=== PATIENT | male | born 1945 | race Caucasian/White ===

== ENCOUNTER 2020-06-15 04:06 | Emergency (ER) | payer MEDICARE, OTHER ==
[~2020-06-15] VITALS: Ht 180.3 cm; Wt 104.3 kg
[~2020-06-15 04:06] MED LIST: ASPI81CH PO; ATOR20 PO; CARV6.25 PO; ESCI20 PO; Flomax0.4 MG PO; LOSA50 PO; Norco 5-325 Ta1 EACH PO; Prilosec Otc20 MG; TAMS.4ER PO
[2020-06-15 04:56] LABS: BASOPHILS ABSOLUTE AUTO 0.04 K/mm3 (0.00-0.23); BASOPHILS PERCENT AUTO 0 % (0-2); EOSINOPHILS ABSOLUTE AUTO 0.18 K/mm3 (0.00-0.68); EOSINOPHILS PERCENT AUTO 2 % (0-6); Hemoglobin 14.2 g/dL (13.5-17.5); IMMATURE GRAN ABSOLUTE AUTO 0.02 K/mm3 (0.00-0.10); IMMATURE GRAN PERCENT AUTO 0 % (0-1); LYMPHOCYTES ABSOLUTE AUTO 1.46 K/mm3 (0.84-5.20); LYMPHOCYTES PERCENT AUTO 16 % (21-46); MONOCYTES ABSOLUTE AUTO 0.86 K/mm3 (0.16-1.47); MONOCYTES PERCENT AUTO 9 % (4-13); Mean Corpuscular HGB 31.9 pg (26.0-34.0); Mean Corpuscular HGB Conc 32.3 g/dL (31.5-36.5); Mean Corpuscular Volume 99 fL (80-100); Mean Platelet Volume 11.4 fL (9.1-12.4); NEUTROPHILS ABSOLUTE AUTO 6.58 K/mm3 (1.96-9.15); NEUTROPHILS PERCENT AUTO 72 % (41-73); Platelet Count 273 K/mm3 (150-400); RDW Coefficient Variation 12.4 % (11.7-14.2); RDW Standard Deviation 45.2 fL (35.1-46.3); Red Blood Cell Count 4.45 M/mm3 (4.30-5.90); White Blood Cell Count 9.14 K/mm3 (4.00-11.30)
[2020-06-15 05:34] LABS: Source, Urine Voided
[2020-06-15 05:37] LABS: Albumin, Blood 3.6 g/dL (3.4-5.0); Albumin/Globulin Ratio 0.9 (0.8-1.8); Bilirubin, Total 0.5 mg/dL (0.1-1.0); Calcium, Blood 8.7 mg/dL (8.5-10.1); Creatinine, Blood 1.93 mg/dL (0.60-1.20); Globulin, Blood 3.9 g/dL (2.2-4.0); Potassium, Blood 4.5 mmol/L (3.5-5.5); Total Protein, Blood 7.5 g/dL (6.4-8.2)
[2020-06-15 05:50] LABS: Appearance, Urine Clear (Clear); Bilirubin, Urine Neg (Neg); Blood, Urine 5+ (Neg); Color, Urine Yellow (P-Yellow); Glucose Qualitative, Urine Neg (Neg); Ketones, Urine Neg (Neg); Leukocyte Esterase, Urine Neg (Neg); Nitrite, Urine Neg (Neg); Protein, Urine 1+ (Neg); Urobilinogen, Urine NORM (Normal)
[2020-06-15] MEDS ORDERED: Norco 5-325 Ta1 EACH PO (05:58)
[2020-06-15] MEDS ORDERED: ONDA4 PO (05:58)
[2020-06-15] MEDS ORDERED: IBUP600 PO (05:58)
[2020-06-15 06:24] LABS: Squamous Epithelial Cells Rare /hpf (Few); White Blood Cells, Urine 0-2 /hpf (0-5)
[2020-06-15 06:25] LABS: Bacteria Few /hpf
== END 2020-06-15 06:41 | disposition home or self-care (01) ==
LOC: ER 04:06
PROVIDERS: Emergency Medicine
DX: N13.2 Hydronephrosis with renal and ureteral calculous obstruction (principal); Z79.82 Long term (current) use of aspirin; Z79.899 Other long term (current) drug therapy; I11.9 Hypertensive heart disease without heart failure; I43 Cardiomyopathy in diseases classified elsewhere
CPT/HCPCS: 36415; 74176; 80053; 81001; 83690; 85025; 93005; 93010; 96374; 96375; 96376; 99284-25; J2270; J2405

== ENCOUNTER 2020-10-19 05:33 | Day surgery (SDC) | payer MEDICARE, OTHER ==
[~2020-10-19] VITALS: Ht 180.3 cm; Wt 118.0 kg
[~2020-10-19 05:33] MED LIST changes: +ALDACTONE25 MG PO; +CLOP75 PO; +IBUP600 PO; +ONDA4 PO; +TORSE20 PO
--- NOTE | 2020-10-19 08:21 | NUR ---
PT TO RECOVERY ROOM. R RADIAL SITE STABLE WITH 10 CC IN TR BAND. PT DENIES PAIN AT THIS TIME.
--- NOTE | 2020-10-19 11:28 | NUR ---
ALL AIR RELEASED FROM TR BAND AROUND 1030 AM BY GARRY CHILDRESS. R RADIAL SITE STABLE, NO BNLEEDING NOTED. PT DRESSED WITH MINIMAL ASSISTANCE. TR BAND REMOVED AND SITE CLEANSED. CLOTH DOT PLACED OVER SITE. NO ACTIVE BLEEEDING NOTED, PT DENIES PAIN AND SITE REMAINS STABLE. DISCHARGE INSTRUCTIONS REVIEWED WITH PT, PT VERBALIZES UNDERSTANDING OF INSTRUCTIONS. SALINE LOCK REMOVED WITH CATHETER INTACT. SLING PLACED TO RIGHT ARM FOR REMINDERS NOT TO USE ARM. PT DISCHARGED PER W/C TO PRIVATE VEHICLE.
== END 2020-10-19 11:30 | disposition home or self-care (01) ==
LOC: MHTC 05:33
PROC: B2111ZZ Fluoroscopy of Multiple Coronary Arteries using Low Osmolar Contrast (ICD-10-PCS; principal; 2020-10-19)
PROC: 4A023N8 Measurement of Cardiac Sampling and Pressure, Bilateral, Percutaneous Approach (ICD-10-PCS; principal; 2020-10-19)
DX: I47.2 Ventricular tachycardia (principal); I25.5 Ischemic cardiomyopathy; I11.0 Hypertensive heart disease with heart failure; I50.9 Heart failure, unspecified; E78.5 Hyperlipidemia, unspecified; I45.2 Bifascicular block; K21.9 Gastro-esophageal reflux disease without esophagitis; Q21.1 Atrial septal defect; Q23.3 Congenital mitral insufficiency; Z79.82 Long term (current) use of aspirin; Z79.899 Other long term (current) drug therapy; Z20.828 Contact with and (suspected) exposure to other viral communicable diseases
CPT/HCPCS: 93460; 99152; C1769; C1894; J1644; J2250; J3010; J7030; J7050; Q9967

== ENCOUNTER 2020-11-13 05:46 | Day surgery (SDC) | payer MEDICARE, OTHER ==
[~2020-11-13] VITALS: Ht 180.3 cm; Wt 116.8 kg
[~2020-11-13 05:46] MED LIST changes: +COREG12.5 MG; +OMEP20ER PO
--- NOTE | 2020-11-13 12:48 | NUR ---
RECHECKED PACER SITE. CDI. NO SWELLING, HEMATOMA NOTED, COOL TO TOUCH. ICE PACK IN PLACE. PT PLEASANT COOP A/O TALKATIVE.
--- NOTE | 2020-11-13 17:25 | NUR ---
PT PLEASANT SINCE ADMIT. REPORTS ONLY LIGHT PAIN. NO SWELLING, NO BLEEDING NOTED AT PACER SITE. IN TO VISIT TODAY FOR FEW HOURS. PT STATES WAS WORKING AT [employer] FOR MANY YEARS. TALKED ABOUT THIS SOME. NO NEW CONCERNS AT THIS TIME. BED IN LOW POSITION, CALL LITE IN [facility], CALLS APPROP
--- NOTE | 2020-11-13 19:38 | NUR ---
IV IS IN PATIENT'S LEFT FOREARM, NOT HIS LEFT AC
--- NOTE | 2020-11-13 19:50 | NUR ---
PATIENT A/OX3. REPORTED PAIN IN L UPPER CHEST WALL R/T ICD PLACEMENT RATED 3/10, MEDICATED WITH TYLENOL. PACED WITH PVCS IN THE 70'S PER TELETECH. SLING IN PLACE TO L ARM, PATIENT VERBALIZED UNDERSTANDING OF POST ICD PLACEMENT PRECAUTIONS. DRESSING TO L UPPER CHEST WALL WITH SMALL AMT YELLOW DRAINAGE, UNCHANGED FROM ASSESSMENT WITH DAYSHIFT RN. NO SWELLING OR BRUISING NOTED TO SITE. UP TO BATHROOM WITH SBA. DISCUSSED POC FOR SHIFT, CARE ROUNDING. CALL LIGHT IN REACH. BED ALARM ON FOR SAFETY.
--- NOTE | 2020-11-14 06:20 | NUR ---
SHIFT SUMMARY: PATIENT A/OX3. TYLENOL GIVEN FOR PAIN IN L UPPER CHEST WALL AND L SHOULDER WITH GOOD EFFECT, PATIENT ABLE TO SLEEP. 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 STATES THAT HE HAS BEEN ABLE TO SLEEP MOST OF THIS SHIFT. SLING REMAINS TO L ARM. DRESSING TO LUCW REMAINS INTACT, NO ADDITIONAL DRAINAGE NOTED, SLIGHT SWELLING NOTED BELOW DRESSING. DISCHAGE EDUCATION AND INFORMATION STARTED. WILL CONTINUE TO MONITOR AND REPORT TO ONCOMING RN.
--- NOTE | 2020-11-14 07:29 | NUR ---
ASSUMED CARE: PT SITTING UPRIGHT IN BED, TALKING TO STAFF. SLING IN PLACE, PACER SITE WITH SCANT IODINE DRAINAGE. TELE SHOWS NSR WITH 1ST DEGREE AND BBB. PACED AT TIMES. PLANS FOR PACER INTERROGATION THIS AM. DENIES NEEDS OR CONCERNS AT THIS TIME.
--- NOTE | 2020-11-14 12:01 | NUR ---
DISCHARGE: PT GIVEN INSTRUCTIONS ON ACTIVITY RESTRICTIONS TO LEFT ARM AND FOLLOW UP APPOINTMENTS. PT VERBALIZED UNDERSTANDING AND REPEATED BACK INSTRUCTIONS. DR CUMMINS CAME TO SEE PT AND CLEARED HIM FOR DISCHARGE, DID DRESSING CHANGE. IV DC'D AND PT WEARING SLING. PT'S HAS BEEN CONTACTED TO EMPLOYEE BENEFITS ATTORNEY. PT ESCORTED OUT VIA WHEEL CHAIR BY TIARRA.
== END 2020-11-14 12:04 | disposition home or self-care (01) ==
LOC: MHTC 05:46 → PCU 05:46 → MHTC 06:00 → PCU 09:00 → MHTC 11-14 12:04
PROC: 0JH608Z Insertion of Defibrillator Generator into Chest Subcutaneous Tissue and Fascia, Open Approach (ICD-10-PCS; principal; 2020-11-13)
PROC: 02H63KZ Insertion of Defibrillator Lead into Right Atrium, Percutaneous Approach (ICD-10-PCS; principal; 2020-11-13)
PROC: 02HK3KZ Insertion of Defibrillator Lead into Right Ventricle, Percutaneous Approach (ICD-10-PCS; principal; 2020-11-13)
DX: I47.2 Ventricular tachycardia (principal); I42.9 Cardiomyopathy, unspecified; I45.10 Unspecified right bundle-branch block; I44.0 Atrioventricular block, first degree; I25.10 Atherosclerotic heart disease of native coronary artery without angina pectoris; I77.819 Aortic ectasia, unspecified site; I10 Essential (primary) hypertension; Q21.1 Atrial septal defect; E66.9 Obesity, unspecified; E78.5 Hyperlipidemia, unspecified; Z79.82 Long term (current) use of aspirin; Z79.899 Other long term (current) drug therapy; Z68.36 Body mass index [BMI] 36.0-36.9, adult; Z20.822 Contact with and (suspected) exposure to COVID-19
CPT/HCPCS: 33249; 71045; 71046; 76937; 99152; 99153; A9270; A9270-GY; C1894; C1895; C1898; J0690; J1644; J2250; J3010; J7030; J7040

== ENCOUNTER 2020-12-06 11:15 | Inpatient (IN) | payer MEDICARE, OTHER ==
[~2020-12-06] VITALS: Ht 180.3 cm; Wt 113.1 kg
[~2020-12-06 11:15] MED LIST changes: -ASPI81CH PO; -CARV6.25 PO; -ESCI20 PO; -LOSA50 PO
[2020-12-06 11:40] LABS: BASOPHILS ABSOLUTE AUTO 0.06 K/mm3 (0.00-0.23); BASOPHILS PERCENT AUTO 0 % (0-2); EOSINOPHILS ABSOLUTE AUTO 0.09 K/mm3 (0.00-0.68); EOSINOPHILS PERCENT AUTO 1 % (0-6); Hematocrit 45.3 % (37.0-53.0); Hemoglobin 15.1 g/dL (13.5-17.5); IMMATURE GRAN ABSOLUTE AUTO 0.08 K/mm3 (0.00-0.10); IMMATURE GRAN PERCENT AUTO 1 % (0-1); LYMPHOCYTES ABSOLUTE AUTO 2.31 K/mm3 (0.84-5.20); LYMPHOCYTES PERCENT AUTO 13 % (21-46); MONOCYTES ABSOLUTE AUTO 1.32 K/mm3 (0.16-1.47); MONOCYTES PERCENT AUTO 7 % (4-13); Mean Corpuscular HGB 31.3 pg (26.0-34.0); Mean Corpuscular HGB Conc 33.3 g/dL (31.5-36.5); Mean Corpuscular Volume 94 fL (80-100); NEUTROPHILS ABSOLUTE AUTO 13.86 K/mm3 (1.96-9.15); NEUTROPHILS PERCENT AUTO 78 % (41-73); Platelet Count 360 K/mm3 (150-400); RDW Coefficient Variation 12.2 % (11.7-14.2); RDW Standard Deviation 42.8 fL (35.1-46.3); Red Blood Cell Count 4.82 M/mm3 (4.30-5.90); White Blood Cell Count 17.72 K/mm3 (4.00-11.30)
[2020-12-06 12:04] LABS: Alanine Aminotransfer (ALT/SGP 42 U/L (12-78); Albumin, Blood 3.4 g/dL (3.4-5.0); Albumin/Globulin Ratio 0.7 (0.8-1.8); Alk Phos 74 U/L (50-136); Anion Gap 7 mmol/L (6-16); Aspartate Aminotrans (AST/SGOT 47 U/L (12-37); Bilirubin, Total 1.3 mg/dL (0.1-1.0); Blood Urea Nitrogen 23 mg/dL (8-24); Bun/Creatinine Ratio 19.5 (12.0-20.0); CO2, Blood 22 mmol/L (21-32); Chloride, Blood 107 mmol/L (98-108); Creatinine, Blood 1.18 mg/dL (0.60-1.20); Globulin, Blood 4.8 g/dL (2.2-4.0); Glomerular Filtration Rate >60 (60-); Glucose, Blood 128 mg/dL (70-99); Potassium, Blood 4.7 mmol/L (3.5-5.5); Sodium, Blood 136 mmol/L (136-145); Total Protein, Blood 8.2 g/dL (6.4-8.2)
[2020-12-06 12:14] LABS: Source, Urine Clean Catch
[2020-12-06 12:17] LABS: Bilirubin, Urine Neg (Neg); Blood, Urine Neg (Neg); Color, Urine Yellow (P-Yellow); Glucose Qualitative, Urine Neg (Neg); Ketones, Urine 1+ (Neg); Leukocyte Esterase, Urine Neg (Neg); Nitrite, Urine Neg (Neg); Protein, Urine 1+ (Neg); Urobilinogen, Urine NORM (Normal)
[2020-12-06 12:30] LABS: Appearance, Urine Hazy (Clear)
[2020-12-06 12:31] LABS: Bacteria Rare /hpf; Red Blood Cells, Urine 0-2 /hpf (0-2); Squamous Epithelial Cells Rare /hpf (Few); Uric Acid Crystals Many /hpf; White Blood Cells, Urine 0-2 /hpf (0-5)
[2020-12-06] MEDS ORDERED: NEURONTIN300 MG PO (14:18)
[2020-12-06] MEDS ORDERED: LOSARTAN POTAS100 M1 PO (14:19)
[2020-12-06] MEDS ORDERED: METO25ER PO (14:19)
[2020-12-06] MEDS ORDERED: ESCI20 PO (14:20)
[2020-12-06] MEDS ORDERED: CARVEDILOL12.5 MG PO (14:20)
[2020-12-06] MEDS ORDERED: PLAVIX75 MG PO (14:21)
[2020-12-06] MEDS ORDERED: Aspir 8181 MG PO (14:23)
[2020-12-06 17:56] LABS: Influenza A, PCR Negative (NEGATIVE); Influenza B, PCR Negative (NEGATIVE); Resp Syncytial Virus, PCR Negative (NEGATIVE); SARS-Cov-2 (COVID-19) PCR, MMC Negative (NEGATIVE)
--- NOTE | 2020-12-06 18:33 | NUR ---
SHIFT SUMMARY/ADMISSION PT A NEW ADMIT TO ROOM 333 FROM ED THIS EVENING. PT ALERT AND ORIENTED X4. DENIES PAIN OR NAUSEA AT THIS TIME. VITALS WNL. FLUIDS STARTED PER DR. CISNEROS. TELE ON AND NSR IN 70'S. PT'S INCISION TO LEFT CHESTWALL INTACT AND HEALING, SCABBED OVER. NO REDNESS NOTED. WAITING FOR DR. BARBA TO SEE PT AND POSSIBLE SURGERY TONIGHT. CALL LIGHT IN REACH. WILL CONTINUE TO MONITOR.
--- NOTE | 2020-12-07 04:29 | NUR ---
SHIFT SUMMARY ASSUMED CARE OF PT AT 1900. PT IS A/OX4. HEART SOUNDS IRREGULAR, TELE SHOWS AFIB @ 70. LUNG SOUNDS DIMINISHED AT BASES, PT WAS ON 2L BUT TITRATED TO 1L, SATURATIONS ABOVE 95%. PT WAS CONTIENT TO BATHROOM. PT HAS BEEN NPO SINCE MIDNIGHT. PT REPORTS PAIN ON HIS R LOWER QUADRANT ABD, MEDICATED TWICE FOR PAIN. PT IS VERY STIFF AND SHAKY PT STATES THAT HE HAS SEEN A DOCTOR OUT PATIENTLY FOR THIS. CALL LIGHT IN REACH, BED IN LOWEST POSITION.
[2020-12-07 05:43] LABS: BASOPHILS ABSOLUTE AUTO 0.04 K/mm3 (0.00-0.23); BASOPHILS PERCENT AUTO 0 % (0-2); EOSINOPHILS ABSOLUTE AUTO 0.14 K/mm3 (0.00-0.68); EOSINOPHILS PERCENT AUTO 1 % (0-6); Hematocrit 43.7 % (37.0-53.0); Hemoglobin 14.4 g/dL (13.5-17.5); IMMATURE GRAN PERCENT AUTO 1 % (0-1); LYMPHOCYTES ABSOLUTE AUTO 2.07 K/mm3 (0.84-5.20); LYMPHOCYTES PERCENT AUTO 11 % (21-46); MONOCYTES ABSOLUTE AUTO 1.42 K/mm3 (0.16-1.47); MONOCYTES PERCENT AUTO 8 % (4-13); Mean Corpuscular HGB 32.1 pg (26.0-34.0); Mean Corpuscular Volume 98 fL (80-100); Mean Platelet Volume 10.9 fL (9.1-12.4); NEUTROPHILS ABSOLUTE AUTO 14.79 K/mm3 (1.96-9.15); NEUTROPHILS PERCENT AUTO 80 % (41-73); Platelet Count 311 K/mm3 (150-400); RDW Coefficient Variation 12.5 % (11.7-14.2); Red Blood Cell Count 4.48 M/mm3 (4.30-5.90); White Blood Cell Count 18.56 K/mm3 (4.00-11.30)
[2020-12-07 06:04] LABS: Bun/Creatinine Ratio 18.6 (12.0-20.0); Calcium, Blood 8.7 mg/dL (8.5-10.1); Creatinine, Blood 1.56 mg/dL (0.60-1.20); Potassium, Blood 4.1 mmol/L (3.5-5.5)
--- NOTE | 2020-12-07 07:33 | NUR ---
ASSUMED CARE OF PT- BEDSIDE REPORT COMPLETED WITH NIGHT RN. PER REPORT PT SCHEDULED TO GO TO SURGERY AROUND 1200. DR FORRESTER AT THE BEDSIDE, PT VITALS COMPLETED SHE WILL PLACE AN ORDER FOR A LOW DOSE OF PT CARDIAC MEDICATION THE PT BP IS A LITTLE HIGHER THIS MORNING. WILL ADMINISTER ONCE THE ORDER IS IN. PT ALERT AND ORIENTED 1PA TO THE BATHROOM PER REPORT. DR FORRESTER WOULD LIKE A PACER INTEROGATION TO BE COMPLETED AFTER SURGERY HAS BEEN COMPLETED AND PT IS BACK TO HIS ROOM. RN TO CALL [facility] POST OP TO ARRANGE.
--- NOTE | 2020-12-07 16:00 | NUR ---
CALLED DR FORRESTER- PER TELE PT HAS INCREASED PVC'S FROM 10 PER MINUTE TO 20 PER MINUTE. VITALS REMAIN STABLE, PT DENIES CHEST PAIN OR INCREASED SOB AT THIS TIME RECIEVED ORDER FOR 25MG PO METOPROLOL SCUCCINATE OT DOSE. PT TO GO TO SURGERY AFTER 5PM AT THIS TIME.
--- NOTE | 2020-12-07 18:05 | NUR ---
PT PREOPED IN HIS ROOM. History, Chart, Medications and Allergies reviewed before start of procedure. Lungs clear T/O to Auscultation. Patient confirms NPO status and agrees with scheduled surgery. Pre-Op teaching done. Pt verbalizes understanding.
--- NOTE | 2020-12-07 19:32 | NUR ---
12/07/201931 Daryn Schilling PT RECIEVED SCHEDULED ANTIBIOTICS PRIOR TO ARRIVAL TO OR.
--- NOTE | 2020-12-07 19:42 | NUR ---
SHIFT SUMMARY- PT VITALS REMAINED STABLE T/O THE DAY, HE DENIES ANT CP OR PRESSURE, DENIED SOB. PT TAKEN BY SABRINA DOWN TO DAY SURGERY AT AROUND 1830. RECIEVED A CALL FROM THE HEART CENTER ABOUT THE PLAN FOR DEVICE INTEROGATION POST OP, BUT THE PT HAD NOT LEFT FOR THE PROCEDURE YET. WAS INFORMED IT WILL HAVE TO BE DONE IN THE MORNING. CALLED DR FORRESTER AND SHE IS AWARE OF THE DELAY. PAST ON THE NEED FOR DEVICE INTERROGATION TO NIGHT CORE MAKER WELL NIGHT BEDSIDE RN. PT WAS NOT PRESENT IN THE ROOM AT THE TIME OF SHIFT CHANGE. SPOUSE LEFT WHEN THE PT WAS TAKEN FOR THE PROCEDURE.
--- NOTE | 2020-12-08 04:22 | NUR ---
DOLLY PUSHER SUMMARY A/OX4, PT POST OP FROM APPENDECTOMY AT BEGINNING OF SHIFT. DENIES PAIN OR SOB. STATES HE IS VERY TIRED. CURRENTLY ON 3L VIA NC, ENCOURAGED USE OF INCENTIVE SPIROMETER. CONT. BIOX IN PLACE WITH SATS GREATER THAN 92. VSS. NO ACUTE CHANGES AT THIS TIME. BED IN LOWEST POSITION WITH CALL LIGHT IN REACH. WILL CONTINUE TO MONITOR AND REPORT TO ONCOMING RN.
[2020-12-08 05:13] LABS: BASOPHILS ABSOLUTE AUTO 0.03 K/mm3 (0.00-0.23); BASOPHILS PERCENT AUTO 0 % (0-2); EOSINOPHILS PERCENT AUTO 0 % (0-6); Hematocrit 43.3 % (37.0-53.0); Hemoglobin 13.7 g/dL (13.5-17.5); IMMATURE GRAN ABSOLUTE AUTO 0.15 K/mm3 (0.00-0.10); IMMATURE GRAN PERCENT AUTO 1 % (0-1); LYMPHOCYTES PERCENT AUTO 6 % (21-46); MONOCYTES PERCENT AUTO 5 % (4-13); Mean Corpuscular HGB 31.4 pg (26.0-34.0); Mean Corpuscular HGB Conc 31.6 g/dL (31.5-36.5); Mean Corpuscular Volume 99 fL (80-100); Mean Platelet Volume 10.8 fL (9.1-12.4); NEUTROPHILS ABSOLUTE AUTO 17.05 K/mm3 (1.96-9.15); NEUTROPHILS PERCENT AUTO 88 % (41-73); Platelet Count 327 K/mm3 (150-400); RDW Coefficient Variation 12.4 % (11.7-14.2); RDW Standard Deviation 46.2 fL (35.1-46.3); Red Blood Cell Count 4.36 M/mm3 (4.30-5.90); White Blood Cell Count 19.33 K/mm3 (4.00-11.30)
[2020-12-08 05:36] LABS: Albumin, Blood 2.8 g/dL (3.4-5.0); Albumin/Globulin Ratio 0.6 (0.8-1.8); Bilirubin, Total 1.2 mg/dL (0.1-1.0); Bun/Creatinine Ratio 20.9 (12.0-20.0); Calcium, Blood 8.2 mg/dL (8.5-10.1); Creatinine, Blood 1.48 mg/dL (0.60-1.20); Globulin, Blood 4.5 g/dL (2.2-4.0); Potassium, Blood 4.2 mmol/L (3.5-5.5); Total Protein, Blood 7.3 g/dL (6.4-8.2)
--- NOTE | 2020-12-08 08:35 | NUR ---
DEVICE INTERROGATION ORDERED BY DR. COUGHLIN POST SURGERY. NORMAL FUNCTIONING DUAL CHAMBER ICD. P WAVE 1.8mV. R WAVE 7.8mV.ATRIAL CAPTURE THRESHOLD 0.5V@.4ms. VENTRICULAR CAPTURE THRESHOLD 2.0V@0.9ms. VT-NS EPISODES: 6. Ap25% Vp2%. STABLE LEAD IMPEDANCES AT 361 OHMS IN THE ATRIUM AND 475 OHMS IN THE VENTRICLE. TO SEE IN CLINIC 01/11/21.
--- NOTE | 2020-12-08 16:36 | NUR ---
PATIENT IS ALERT AND ORIENTED. ABLE TO MAKE NEEDS KNOWN. PAIN CONTROLLED WELL UP UNTIL THIS AFTERNOON WHEN PATIENT REQUESTED SOME PAIN MEDICATION; PENDING EFFECTIVENESS. CONTINUES ON IV ABX WITHOUT S/SX OF ADVERSE REACTIONS NOTED OR REPORTED. VITALS ARE STABLE. IS AT BEDSIDE. CALL LIGHT IS IN REACH.
--- NOTE | 2020-12-09 04:21 | NUR ---
SHIFT SUMMARY NO ACUTE CHANGES THIS SHIFT, MEDICATED 1X FOR PAIN, PT THEN SLEPT T/O THE NIGHT, MINIMAL ST BY ASSIST TO BR, ABLE TO MAKE NEEDS KNOWN, SLEEPING AT THIS TIME, CALL LIGHT IN REACH, WILL CONT TO MONITOR UNTIL REPORT GIVEN TO DAY RN.
[2020-12-09 05:43] LABS: BASOPHILS ABSOLUTE AUTO 0.04 K/mm3 (0.00-0.23); BASOPHILS PERCENT AUTO 0 % (0-2); EOSINOPHILS ABSOLUTE AUTO 0.35 K/mm3 (0.00-0.68); EOSINOPHILS PERCENT AUTO 2 % (0-6); Hematocrit 41.9 % (37.0-53.0); Hemoglobin 13.4 g/dL (13.5-17.5); IMMATURE GRAN ABSOLUTE AUTO 0.15 K/mm3 (0.00-0.10); IMMATURE GRAN PERCENT AUTO 1 % (0-1); LYMPHOCYTES ABSOLUTE AUTO 1.71 K/mm3 (0.84-5.20); LYMPHOCYTES PERCENT AUTO 10 % (21-46); MONOCYTES ABSOLUTE AUTO 1.53 K/mm3 (0.16-1.47); MONOCYTES PERCENT AUTO 9 % (4-13); Mean Corpuscular HGB 31.4 pg (26.0-34.0); Mean Corpuscular Volume 98 fL (80-100); Mean Platelet Volume 10.9 fL (9.1-12.4); NEUTROPHILS ABSOLUTE AUTO 13.73 K/mm3 (1.96-9.15); NEUTROPHILS PERCENT AUTO 78 % (41-73); Platelet Count 358 K/mm3 (150-400); RDW Coefficient Variation 12.5 % (11.7-14.2); RDW Standard Deviation 45.5 fL (35.1-46.3); Red Blood Cell Count 4.27 M/mm3 (4.30-5.90); White Blood Cell Count 17.51 K/mm3 (4.00-11.30)
[2020-12-09 06:19] LABS: Alanine Aminotransfer (ALT/SGP 28 U/L (12-78); Albumin, Blood 2.7 g/dL (3.4-5.0); Albumin/Globulin Ratio 0.6 (0.8-1.8); Alk Phos 66 U/L (50-136); Anion Gap 5 mmol/L (6-16); Aspartate Aminotrans (AST/SGOT 27 U/L (12-37); Bilirubin, Total 0.6 mg/dL (0.1-1.0); Blood Urea Nitrogen 33 mg/dL (8-24); Bun/Creatinine Ratio 26.6 (12.0-20.0); CO2, Blood 27 mmol/L (21-32); Calcium, Blood 8.4 mg/dL (8.5-10.1); Chloride, Blood 106 mmol/L (98-108); Creatinine, Blood 1.24 mg/dL (0.60-1.20); Globulin, Blood 4.4 g/dL (2.2-4.0); Glomerular Filtration Rate >60 (60-); Glucose, Blood 120 mg/dL (70-99); Potassium, Blood 4.1 mmol/L (3.5-5.5); Sodium, Blood 138 mmol/L (136-145); Total Protein, Blood 7.1 g/dL (6.4-8.2)
--- NOTE | 2020-12-09 16:02 | NUR ---
PATIENT ALERT AND ORIENTED. PLEASANT AND COOPERATIVE WITH STAFF. VITALS STABLE; OCCASIONALLY HIS O2 SATS DIP JUST BELOW 90% BUT QUICKLY RESOLVE ON IT'S OWN. PATIENT CONTINUES ON IV ABX WITHOUT S/SX OF ADVERSE REACTIONS NOTED OR REPORTED AT THIS TIME. PAIN TO PATIENT'S LOWER ABDOMEN CONTINUES, BEEN ON TOP OF PAIN MANAGEMENT WITH SOME EFFECTIVENESS. PATIENT CONTINUES TO TRY AND GET SOME REST WHEN HE CAN. PATIENT IN ROOM RESTING AT THIS TIME. CALL LIGHT WITHIN REACH. VISITING AT BEDSIDE.
--- NOTE | 2020-12-10 04:46 | NUR ---
SHIFT SUMMARY NO ACUTE CHANGES THIS SHIFT, MEDICATED PER MAR FOR PAIN 2X THIS SHIFT, REPORTS PAIN LEVELS 05/15 BUT APPEARS TO BE MOVING BETTER & REPORTS PAIN IS MORE LOWER ABD THAN R QUAD NOW, SLEPT T/O THE NIGHT & AT THIS TIME, CALL LIGHT IN REACH, WILL CONT TO MONITOR UNTIL REPORT GIVEN TO DAY RN.
--- NOTE | 2020-12-10 17:40 | NUR ---
HE RECEIVED A FLEETS ENEMA THIS AFTERNOON, A ONE TIME ORDER FROM . HE PASSED A LOT OF DARK BROWN WATER. EARLIER TODAY HE HAD A COUPLE OF WATERY BROWN STOOLS. HE DENIES ANY DIFFICULTY VOIDING. HE HAD DRY HEEVES THIS AFTER BREAKFAST AND VOMITED ABOUT 60 MLS OF WATERY RED FLUID MID-AFTERNOON. HE HAD RECEIVED HYDOCODONE ABOUT 90 MIN BEFORE EACH OF THESE INCIDENTS. HIS ABD IS SEVERELY DISTENDED AND SEMI-SOFT. BS ARE HYPOACTIVE. 3 LAP SITE ARE WNL. HE ATE BREAKFAST WELL BUT DIDN'T EAT MUCH LUNCH. TEDS ON. OXIMETRY ON. READINGS HAVE BEEN WNL ALL DAY. IV ANTIBIOTICS CONTINUE. HE IS AFEBRILE AND REMAINS ON RA. HE HAS RECEIVED ZOFRAN X1, TUMS X1, HYDROCODONE X1 AND FLEETS ENEMA X1 THIS SHIFT.
--- NOTE | 2020-12-10 18:47 | NUR ---
FOUND HIS SL OUT OF THE SKIN. HE HAS BEEN RESTARTED AND FLAGYL RESTARTED.
--- NOTE | 2020-12-11 04:21 | NUR ---
SHIFT SUMMARY NO ACUTE CHANGES THIS SHIFT, MEDICATED 1X FOR PAIN, NO OTHER C/O ANY KIND, SLEPT T/O THE NIGHT, SLEEPING AT THIS TIME, CALL LIGHT IN REACH, WILL CONT TO MONITOR UNTIL REPORT GIVEN TO DAY RN.
[2020-12-11 05:23] LABS: BASOPHILS ABSOLUTE AUTO 0.06 K/mm3 (0.00-0.23); BASOPHILS PERCENT AUTO 1 % (0-2); EOSINOPHILS PERCENT AUTO 2 % (0-6); Hematocrit 41.8 % (37.0-53.0); Hemoglobin 13.5 g/dL (13.5-17.5); IMMATURE GRAN ABSOLUTE AUTO 0.16 K/mm3 (0.00-0.10); IMMATURE GRAN PERCENT AUTO 1 % (0-1); LYMPHOCYTES ABSOLUTE AUTO 1.57 K/mm3 (0.84-5.20); LYMPHOCYTES PERCENT AUTO 12 % (21-46); MONOCYTES ABSOLUTE AUTO 0.95 K/mm3 (0.16-1.47); MONOCYTES PERCENT AUTO 7 % (4-13); Mean Corpuscular HGB 31.3 pg (26.0-34.0); Mean Corpuscular HGB Conc 32.3 g/dL (31.5-36.5); Mean Corpuscular Volume 97 fL (80-100); Mean Platelet Volume 10.6 fL (9.1-12.4); NEUTROPHILS ABSOLUTE AUTO 10.05 K/mm3 (1.96-9.15); NEUTROPHILS PERCENT AUTO 77 % (41-73); Platelet Count 374 K/mm3 (150-400); RDW Coefficient Variation 12.7 % (11.7-14.2); RDW Standard Deviation 45.4 fL (35.1-46.3); Red Blood Cell Count 4.32 M/mm3 (4.30-5.90); White Blood Cell Count 12.99 K/mm3 (4.00-11.30)
[2020-12-11 05:47] LABS: Anion Gap 8 mmol/L (6-16); Blood Urea Nitrogen 18 mg/dL (8-24); Bun/Creatinine Ratio 21.4 (12.0-20.0); CO2, Blood 25 mmol/L (21-32); Calcium, Blood 8.6 mg/dL (8.5-10.1); Chloride, Blood 107 mmol/L (98-108); Creatinine, Blood 0.84 mg/dL (0.60-1.20); Glomerular Filtration Rate >60 (60-); Glucose, Blood 130 mg/dL (70-99); Potassium, Blood 4.1 mmol/L (3.5-5.5); Sodium, Blood 140 mmol/L (136-145)
--- NOTE | 2020-12-11 15:40 | NUR ---
HE HAS NAPPED OFF AND ON TODAY. HIS HAS VISITED THIS AFTERNOON. PT EVALUATED HIM. HE HAS WALKED IN THE [place] WITH 1 ASSIST AND A GAITBELT X2 SO FAR TODAY. BOTH AND HAVE ROUNDED ON HIM. WAS TALKING POSSIBLE DC TOMORROW BUT WAS TALKING DC MONDAY OR SO. SHE MAY ORDER A CT MONDAY TO SEE IF ANY NEW OR RESIDUAL ABSCESS HAS FORMED SINCE SURGERY. HE IS NOT EATING WELL, 50% BREAKFAST AND NO LUNCH. THIS MIMICS YESTERDAY TOO. NO FEVER. LAPAROSCOPIC SITES ON ABD WNL. VSS. HE HAS RECEIVED HYDROCODONE ONCE SO FAR THIS SHIFT. HE HAS HAD A SMALL NONPRODUCTIVE COUGH. HIS OXIMETRY WAS DC'D. HE HAS BEEN ON RA 90-94%. THE MACHINE IS NEEDED ELSEWHERE. KNEE HIGH TEDS ARE ON BILAT. GETS I.S. UP TO 1200.
--- NOTE | 2020-12-11 18:25 | NUR ---
HE RECEIVED [employer] 2 TABS X2 TODAY. HIS VISITED FOR A FEW HRS. HE WALKED IN THE [place] TWICE. HE HAD 2 LOOSE STOOLS. HE SAYS HE DOESN'T PASS MUCH GAS. ABD IS DISTENDED. SEE PREVIOUS NURSES NOTE FOR MORE DETAILS.
--- NOTE | 2020-12-12 05:14 | NUR ---
PT SLEPT WELL TONIGHT. A/O X4. MEDICATED FOR PAIN DUE TO ABD. BLOATING OVERNIGHT. PT CONTINUES TO HAVE VERY LOOSE STOOLS, HOWEVER THIS TIME IT WAS "BLACK AND GRAINY" PER CARDIAC/VASCULAR SONOGRAPHER. BM WAS FLUSHED BEFORE RN COULD TAKE A LOOK. PT SAID BM DID APPEAR DARKER. DENIES NAUSEA, SOB. CALL LIGHT WITHIN REACH, BED ALARM IN PLACE. WCC.
--- NOTE | 2020-12-12 09:50 | NUR ---
ASKED FOR ANOTHER ANTINAUSEA MED. GIVEN AROUND 0830 AND STILL WITH NAUSEA. NO VOMITING.COMPAZINE 10 MG IV Q 6 HR PRN
--- NOTE | 2020-12-12 16:01 | NUR ---
ALERT. ORIENTED. ABLE TO MAKE NEEDS KNOWN. REVIEW/UPDATE IN PATIENTS ROOM. AWARE POSSIBLE D'C ON MONDAY. AMBULATORY X ONE IN HALLWAY AND TOLERATED WELL. MEDICATED TWICE FOR NAUSEA. PATIENT STILL FEELS BLOATED TO ABD AND PASSING A LITTLE GAS. HAS BEEN VISITING FOR FEW HOURS. [facility]
--- NOTE | 2020-12-12 21:57 | NUR ---
PT AMBULATED WITH 1 ASSIST, GAITBELT AND FWW DOWN THE VELAZ[place] ABOUT 250 FEET. PT FELT NAUSEOUS AFTER WALK. IV ZOFRAN GIVEN. NOW PT IS RESTING WITH EYES CLOSED IN BED. BED ALARM IN PLACE. CALL LIGHT WITHIN REACH. [facility].
--- NOTE | 2020-12-13 05:59 | NUR ---
ASSESSMENT SERVICES MANAGER SUMMARY PT A/O X4. AMBULATED NOW THE HALLWAY OVERNIGHT. PT MEDICATED OVERNIGHT FOR NAUSEA. STATES HE HAS INTERMITTENT NAUSEA. PT STATES VERY MILD TOLERABLE NAUSEA CURRENTLY. PT ALSO SAYS HE FEELS A LITTLE LESS BLOATED. HE IS PASSING SOME GAS. CONTINUES TO HAVE FREQUENT WATERY DARK GREEN/BROWN BOWEL MOVEMENTS. VSS. CALL LIGHT WITHIN REACH, BED ALARM ON, BED IN LOWEST POSITION.
[2020-12-13 11:08] LABS: BASOPHILS ABSOLUTE AUTO 0.07 K/mm3 (0.00-0.23); BASOPHILS PERCENT AUTO 1 % (0-2); EOSINOPHILS ABSOLUTE AUTO 0.11 K/mm3 (0.00-0.68); EOSINOPHILS PERCENT AUTO 1 % (0-6); Hematocrit 41.8 % (37.0-53.0); Hemoglobin 13.5 g/dL (13.5-17.5); IMMATURE GRAN PERCENT AUTO 2 % (0-1); LYMPHOCYTES ABSOLUTE AUTO 1.99 K/mm3 (0.84-5.20); LYMPHOCYTES PERCENT AUTO 15 % (21-46); MONOCYTES ABSOLUTE AUTO 1.02 K/mm3 (0.16-1.47); MONOCYTES PERCENT AUTO 8 % (4-13); Mean Corpuscular HGB 31.3 pg (26.0-34.0); Mean Corpuscular HGB Conc 32.3 g/dL (31.5-36.5); Mean Corpuscular Volume 97 fL (80-100); Mean Platelet Volume 10.3 fL (9.1-12.4); NEUTROPHILS ABSOLUTE AUTO 9.82 K/mm3 (1.96-9.15); NEUTROPHILS PERCENT AUTO 74 % (41-73); Platelet Count 308 K/mm3 (150-400); RDW Coefficient Variation 12.8 % (11.7-14.2); RDW Standard Deviation 45.3 fL (35.1-46.3); Red Blood Cell Count 4.32 M/mm3 (4.30-5.90); White Blood Cell Count 13.21 K/mm3 (4.00-11.30)
[2020-12-13 11:26] LABS: Anion Gap 7 mmol/L (6-16); Blood Urea Nitrogen 14 mg/dL (8-24); Bun/Creatinine Ratio 16.3 (12.0-20.0); CO2, Blood 24 mmol/L (21-32); Calcium, Blood 8.6 mg/dL (8.5-10.1); Chloride, Blood 108 mmol/L (98-108); Creatinine, Blood 0.86 mg/dL (0.60-1.20); Glomerular Filtration Rate >60 (60-); Glucose, Blood 116 mg/dL (70-99); Potassium, Blood 3.8 mmol/L (3.5-5.5); Sodium, Blood 139 mmol/L (136-145)
--- NOTE | 2020-12-13 14:23 | NUR ---
TO CT VIA W/C
--- NOTE | 2020-12-13 16:38 | NUR ---
CALLED [employer] SERVICE AT [phone] ABD DONE AND HAS BEEN READ.
--- NOTE | 2020-12-13 18:01 | NUR ---
VERY SLEEPY AFTER ANTI NAUSEA MED COMPAZINE.VSS. WCTM
[2020-12-14 05:02] LABS: BASOPHILS ABSOLUTE AUTO 0.08 K/mm3 (0.00-0.23); BASOPHILS PERCENT AUTO 1 % (0-2); EOSINOPHILS ABSOLUTE AUTO 0.18 K/mm3 (0.00-0.68); EOSINOPHILS PERCENT AUTO 2 % (0-6); Hematocrit 41.1 % (37.0-53.0); Hemoglobin 13.7 g/dL (13.5-17.5); IMMATURE GRAN PERCENT AUTO 2 % (0-1); LYMPHOCYTES ABSOLUTE AUTO 1.82 K/mm3 (0.84-5.20); LYMPHOCYTES PERCENT AUTO 17 % (21-46); MONOCYTES ABSOLUTE AUTO 0.76 K/mm3 (0.16-1.47); MONOCYTES PERCENT AUTO 7 % (4-13); Mean Corpuscular HGB 32.4 pg (26.0-34.0); Mean Corpuscular HGB Conc 33.3 g/dL (31.5-36.5); Mean Corpuscular Volume 97 fL (80-100); Mean Platelet Volume 10.1 fL (9.1-12.4); NEUTROPHILS ABSOLUTE AUTO 7.47 K/mm3 (1.96-9.15); NEUTROPHILS PERCENT AUTO 71 % (41-73); Platelet Count 286 K/mm3 (150-400); RDW Coefficient Variation 13.1 % (11.7-14.2); RDW Standard Deviation 46.4 fL (35.1-46.3); Red Blood Cell Count 4.23 M/mm3 (4.30-5.90); White Blood Cell Count 10.51 K/mm3 (4.00-11.30)
[2020-12-14 05:13] LABS: International Normalized Ratio 1.23
[2020-12-14 05:31] LABS: Anion Gap 8 mmol/L (6-16); Blood Urea Nitrogen 12 mg/dL (8-24); Bun/Creatinine Ratio 12.3 (12.0-20.0); CO2, Blood 24 mmol/L (21-32); Calcium, Blood 8.5 mg/dL (8.5-10.1); Chloride, Blood 110 mmol/L (98-108); Creatinine, Blood 0.98 mg/dL (0.60-1.20); Glomerular Filtration Rate >60 (60-); Glucose, Blood 117 mg/dL (70-99); Potassium, Blood 3.6 mmol/L (3.5-5.5); Sodium, Blood 142 mmol/L (136-145)
--- NOTE | 2020-12-14 05:50 | NUR ---
BRANCH SALES AND SERVICE REPRESENTATIVE SUMMARY PT A/O X4. SLEPT WELL TONIGHT. AMBULATED ABOUT 250 FEET DOWN THE HALLWAYS WITH 1 ASSIST AND FWW. OCCASIONAL LOOSE WATERY GREEN BOWEL MOVEMENTS. PT STATES ABD. BLOADING IS A LITTLE BETTER. NPO OVERNIGHT. VSS. NO ACUTE CHANGES. BED ALARM ON, CALL LIGHT WITHIN REACH.
--- NOTE | 2020-12-14 13:28 | NUR ---
TO CT NOW FOR THE DRAIN INSERTION. HE HAS AMBULATED IN THE [place] X1. HE HAS CONTINUOUS NAGGING NAUSEA. THE ABD PAIN IS MILD, NOT NEEDING ANY PAIN PILL THIS MORNING. ZOFRAN GIVEN X1. NO EMESIS. NO FEVER. 3 LAP SITES ON ABD WNL. BOTH AND HAVE ROUNDED.
--- NOTE | 2020-12-14 17:34 | NUR ---
HE IS RESTING IN BED. HIS DIET WAS CHANGED TO FL. HE HAS NOT BEEN HUNGRY SO FL SOUNDS GOOD TO HIM. HIS JUST LEFT AFTER VISITING FOR A FEW HRS. HE AMBULATED X2 IN THE [place] SO FAR TODAY, ONCE WITH HIS . HE HAS RECEIVED A LOT OF PHONE CALLS TODAY. SURGICAL SITES ARE WNL. ABD IS STILL DISTENDED. CT ASPIRATED 3 MLS FLUID TODAY FOR CULTURE AND CYTOLOGY. NO DRAIN. HE HAS A BANDAID CD&I RLQ. NO FEVER. WE ARE CONTINUING THE SAME ANTIBIOTICS AND HE HAS A 500 ML SALINE BAG INFUSING AT 50 MLS/HR. HE IS VOIDING OK AND HAS HAD 3 OR 4 SMALL LOOSE STOOLS, MOSTLY GREEN HE SAYS.
--- NOTE | 2020-12-15 05:15 | NUR ---
SHIFT SUMMARY: VSS. AFEB. TACHYCARDIC AFTER ACTIVITY THIS AM. UP AMB W/ SBA AND FWW IN ROOM. PT REMAINS NAUSEATED WHILE AWAKE- REFUSES ANTIEMETIC, STATING THEY HAVE NOT BEEN HELPFUL AND THAT NAUSEA IS TOLERABLE AT THIS TIME. ABD IS NON-TENDER W/ PALPATION. PT PASSING FLATUS AND LIQUID BROWN STOOL EACH TIME HE VOIDS. ABD INCISION SITES ALL WEB PUBLISHER W/EDGES WELL APPROXIMATED AND NO ERYTHEMA. ABT INFUSED PER ORDERS. NO ACUTE CHANGES OVERNIGHT. WCTM.
[2020-12-15 06:29] LABS: BASOPHILS ABSOLUTE AUTO 0.05 K/mm3 (0.00-0.23); BASOPHILS PERCENT AUTO 1 % (0-2); EOSINOPHILS ABSOLUTE AUTO 0.14 K/mm3 (0.00-0.68); EOSINOPHILS PERCENT AUTO 1 % (0-6); Hematocrit 41.7 % (37.0-53.0); Hemoglobin 13.5 g/dL (13.5-17.5); IMMATURE GRAN ABSOLUTE AUTO 0.19 K/mm3 (0.00-0.10); IMMATURE GRAN PERCENT AUTO 2 % (0-1); LYMPHOCYTES ABSOLUTE AUTO 2.38 K/mm3 (0.84-5.20); LYMPHOCYTES PERCENT AUTO 22 % (21-46); MONOCYTES ABSOLUTE AUTO 0.86 K/mm3 (0.16-1.47); MONOCYTES PERCENT AUTO 8 % (4-13); Mean Corpuscular HGB 31.5 pg (26.0-34.0); Mean Corpuscular HGB Conc 32.4 g/dL (31.5-36.5); Mean Corpuscular Volume 97 fL (80-100); Mean Platelet Volume 10.2 fL (9.1-12.4); NEUTROPHILS ABSOLUTE AUTO 7.33 K/mm3 (1.96-9.15); NEUTROPHILS PERCENT AUTO 67 % (41-73); Platelet Count 280 K/mm3 (150-400); RDW Coefficient Variation 13.2 % (11.7-14.2); RDW Standard Deviation 46.5 fL (35.1-46.3); Red Blood Cell Count 4.28 M/mm3 (4.30-5.90); White Blood Cell Count 10.95 K/mm3 (4.00-11.30)
[2020-12-15 06:43] LABS: Anion Gap 8 mmol/L (6-16); Blood Urea Nitrogen 12 mg/dL (8-24); CO2, Blood 23 mmol/L (21-32); Calcium, Blood 8.3 mg/dL (8.5-10.1); Chloride, Blood 112 mmol/L (98-108); Creatinine, Blood 0.93 mg/dL (0.60-1.20); Glomerular Filtration Rate >60 (60-); Glucose, Blood 108 mg/dL (70-99); Magnesium, Blood 1.9 mg/dL (1.6-2.4); Potassium, Blood 3.8 mmol/L (3.5-5.5); Sodium, Blood 143 mmol/L (136-145)
--- NOTE | 2020-12-15 18:26 | NUR ---
HE HAS TAKEN FL'S PO TODAY, WALKED IN THE [place], AND HAS HAD NO EMESIS. HE TOOK ZOFRAN X1 FOR LINGERING NAUSEA. HE DENIES NEED FOR PAIN MEDICINE. HE DENIES ANY DIFFICULTY VOIDING. HE HAS HAD DIARRHEA STOOLS. HE SAYS THERE IS A LITTLE FIBER TO IT. NO FEVER. ABD SURGICAL WOUNDS AND ASP. SITE ALL WNL.
--- NOTE | 2020-12-16 04:30 | NUR ---
SHIFT SUMMARY ADMITTED FOR APPENDICEAL ABSCESS. FULL CODE. APPENDECTOMY PERFORMED, FOUND TO BE RUPTURED. ABSCESSES HAVE BEEN DRAINED AND CULTURED, AWAITING CULTURES. IV ANTIBIOTICS ARE SCHEDULED. PT IS HOPEFUL FOR DC TODAY. HE IS ON A FULL LIQUID DIET. NO NAUSEA REPORTED THIS SHIFT. HE STATES HIS DIARRHEA CONTINUES. PACEMAKER IN PLACE.
[2020-12-16] MEDS ORDERED: SENN187 PO (12:48)
[2020-12-16] MEDS ORDERED: VISBIOME 112.51 EACH PO (12:48)
[2020-12-16] MEDS ORDERED: ONDA4ODT MM (12:48)
[2020-12-16] MEDS ORDERED: AMOCLA875 PO (12:49)
[2020-12-16] MEDS ORDERED: ACET325 PO (12:49)
--- NOTE | 2020-12-16 13:28 | NUR ---
DR. HECK TOLD THE PATIENT THAT HER OFFICE WILL CONTACT HIM TO SCHEDULE A FOLLOW UP APPOINTMENT
== END 2020-12-16 13:35 | disposition home or self-care (01) | DRG 853 ==
LOC: ER 11:15 → MEDS 15:39 → ER 17:15 → MEDS 17:37
PROVIDERS: Emergency Medicine; Internal Medicine; Physician Assistant; Surgery; ADMIT Hospitalist
PROC: 0D9J40Z Drainage of Appendix with Drainage Device, Percutaneous Endoscopic Approach (ICD-10-PCS; 2020-12-07)
PROC: 0DTJ4ZZ Resection of Appendix, Percutaneous Endoscopic Approach (ICD-10-PCS; principal; 2020-12-07 15:00)
DX: A41.9 Sepsis, unspecified organism (principal); I21.A1 Myocardial infarction type 2; K35.33 Acute appendicitis with perforation, localized peritonitis, and gangrene, with abscess; F32.1 Major depressive disorder, single episode, moderate; I42.9 Cardiomyopathy, unspecified; I13.0 Hypertensive heart and chronic kidney disease with heart failure and stage 1 through stage 4 chronic kidney disease, or unspecified chronic kidney disease; I50.22 Chronic systolic (congestive) heart failure; N17.9 Acute kidney failure, unspecified; Z20.822 Contact with and (suspected) exposure to COVID-19; N18.30 Chronic kidney disease, stage 3 unspecified; E66.9 Obesity, unspecified; E78.5 Hyperlipidemia, unspecified; I25.10 Atherosclerotic heart disease of native coronary artery without angina pectoris; Z95.2 Presence of prosthetic heart valve; Z95.810 Presence of automatic (implantable) cardiac defibrillator; I25.2 Old myocardial infarction; Z95.1 Presence of aortocoronary bypass graft
CPT/HCPCS: 0241U; 36415; 49405; 71046; 74176; 74177; 76700; 80048; 80053; 81001; 83690; 83735; 83880; 84484; 85025; 85610; 87070; 87075; 87205; 88304; 93005; 93010; 93283; 94762; 96365; 96375; 97116; 97162; 97530; 99285-25; A9270; J0696; J0780; J1100; J1170; J1885; J2250; J2405; J2543; J2704; J3010; J7030; J7040; J7050; J7120; Q9967

== ENCOUNTER 2022-09-08 09:45 | Day surgery (SDC) | payer MEDICARE, OTHER ==
[~2022-09-08] VITALS: Ht 180.3 cm; Wt 116.3 kg
[~2022-09-08 09:45] MED LIST changes: +ACET325 PO; +AMAN100 PO; +AMOCLA875 PO; +Aspir 8181 MG PO; +CARVEDILOL12.5 MG PO; +ESCI20 PO; +LOSARTAN POTAS100 M1 PO; +METO25ER PO; +NEURONTIN300 MG PO; +ONDA4ODT MM; +PLAVIX75 MG PO; +SENN187 PO; +VISBIOME 112.51 EACH PO
[2022-09-08] MEDS ORDERED: LOSA50 PO (10:23)
[2022-09-08] MEDS ORDERED: ABILIFY MYCITE2 M2 PO (10:23)
[2022-09-08] MEDS ORDERED: OMEP20ER PO (10:24)
[2022-09-08] MEDS ORDERED: TORSE20 PO (10:24)
[2022-09-08] MEDS ORDERED: TAMS.4ER PO (10:24)
[2022-09-08] MEDS ORDERED: SPIR25 PO (10:24)
== END 2022-09-08 11:42 | disposition home or self-care (01) ==
LOC: ORSCSDS 09:45
PROVIDERS: Ophthalmology
PROC: 08DJ3ZZ Extraction of Right Lens, Percutaneous Approach (ICD-10-PCS; principal; 2022-09-08 11:00)
DX: H25.11 Age-related nuclear cataract, right eye (principal); K21.9 Gastro-esophageal reflux disease without esophagitis; I10 Essential (primary) hypertension; E78.5 Hyperlipidemia, unspecified; Z95.0 Presence of cardiac pacemaker; G20 Parkinson's disease; I50.9 Heart failure, unspecified; I48.91 Unspecified atrial fibrillation; I71.40 Abdominal aortic aneurysm, without rupture, unspecified; Z87.891 Personal history of nicotine dependence; E66.9 Obesity, unspecified; Z68.35 Body mass index [BMI] 35.0-35.9, adult; Z79.82 Long term (current) use of aspirin; Z79.899 Other long term (current) drug therapy; Z79.01 Long term (current) use of anticoagulants
CPT/HCPCS: J2001; J2250; J3010; J3301; J7040; V2632

== ENCOUNTER 2022-09-15 06:12 | Day surgery (SDC) | payer MEDICARE, OTHER ==
[~2022-09-15] VITALS: Ht 180.3 cm; Wt 116.2 kg
[~2022-09-15 06:12] MED LIST changes: +ABILIFY MYCITE2 M2 PO; +LOSA50 PO; +SPIR25 PO
--- NOTE | 2022-09-15 06:41 | NUR ---
09/15/22 0641 Patricia Jama AT 0647 [facility] T [id number]
--- NOTE | 2022-09-15 13:14 | NUR ---
09/15/22 1314 Ziyad Cuadra PT LEFT WITHOUT DISCHARGE INSTRUCTIONS. PT WAS CALLED AND VOICEMAIL WAS LEFT. PT CALLED BACK AND STATED THAT HE DIDN'T WANT THE INSTRUCTIONS AND THAT HE WOULD REFER TO A COPY OF THE INSTRUCTIONS GIVEN TO HIM FOLLOWING HIS PREVIOUS CATARACT EXTRACTION.
== END 2022-09-15 08:02 | disposition home or self-care (01) ==
LOC: ORSCSDS 06:12
PROVIDERS: Ophthalmology
PROC: 08DK3ZZ Extraction of Left Lens, Percutaneous Approach (ICD-10-PCS; principal; 2022-09-15 07:30)
DX: H25.12 Age-related nuclear cataract, left eye (principal); Z96.1 Presence of intraocular lens; I10 Essential (primary) hypertension; I48.92 Unspecified atrial flutter; K21.9 Gastro-esophageal reflux disease without esophagitis; G20 Parkinson's disease; Z95.0 Presence of cardiac pacemaker; E78.5 Hyperlipidemia, unspecified; E66.9 Obesity, unspecified; Z68.35 Body mass index [BMI] 35.0-35.9, adult; Z87.891 Personal history of nicotine dependence; Z79.899 Other long term (current) drug therapy
CPT/HCPCS: J2001; J2250; J3010; J3301; J7040; V2632

== ENCOUNTER 2023-06-25 17:01 | Emergency (ER) | payer OTHER ==
[~2023-06-25] VITALS: Ht 180.3 cm; Wt 88.5 kg
[2023-06-25 17:49] VITALS: BP 117/71
== END 2023-06-25 20:53 | disposition home or self-care (01) ==
LOC: ER 17:01
DX: K59.00 Constipation, unspecified (principal); I10 Essential (primary) hypertension
CPT/HCPCS: 74018; 99283-25

== ENCOUNTER 2023-07-22 15:46 | Emergency (ER) | payer OTHER ==
[~2023-07-22] VITALS: Ht 180.3 cm; Wt 85.3 kg
[2023-07-22] MEDS ORDERED: Ventolin/Prove6.7 GM INH (17:53)
[2023-07-22] MEDS ORDERED: ALLO100 PO (17:54)
[2023-07-22] MEDS ORDERED: BUMETANIDE2 M6 PO (17:54)
[2023-07-22] MEDS ORDERED: ALLO300 PO (17:55)
[2023-07-22] MEDS ORDERED: DIGOX125 MC1 PO (17:56)
[2023-07-22] MEDS ORDERED: CARBIDOPA-LEVO1 EA15 PO (17:56)
[2023-07-22] MEDS ORDERED: ELIQUIS5 M3 PO (17:57)
[2023-07-22] MEDS ORDERED: FLUDROCORTISON0.1 M2 PO (17:57)
[2023-07-22] MEDS ORDERED: METO50ER PO (17:58)
[2023-07-22] MEDS ORDERED: MIDO5 PO (17:58)
[2023-07-22] MEDS ORDERED: POTA10T PO (17:59)
[2023-07-22 19:02] LABS: BASOPHILS ABSOLUTE AUTO 0.03 K/mm3 (0.00-0.23); BASOPHILS PERCENT AUTO 0 % (0-2); EOSINOPHILS ABSOLUTE AUTO 0.11 K/mm3 (0.00-0.68); EOSINOPHILS PERCENT AUTO 1 % (0-6); Hematocrit 42.2 % (37.0-53.0); Hemoglobin 13.2 g/dL (13.5-17.5); IMMATURE GRAN ABSOLUTE AUTO 0.05 K/mm3 (0.00-0.10); IMMATURE GRAN PERCENT AUTO 1 % (0-1); LYMPHOCYTES ABSOLUTE AUTO 2.09 K/mm3 (0.84-5.20); LYMPHOCYTES PERCENT AUTO 25 % (21-46); MONOCYTES PERCENT AUTO 7 % (4-13); Mean Corpuscular HGB 25.9 pg (26.0-34.0); Mean Corpuscular HGB Conc 31.3 g/dL (31.5-36.5); Mean Corpuscular Volume 83 fL (80-100); Mean Platelet Volume 11.6 fL (9.1-12.4); NEUTROPHILS ABSOLUTE AUTO 5.46 K/mm3 (1.96-9.15); NEUTROPHILS PERCENT AUTO 65 % (41-73); Platelet Count 249 K/mm3 (150-400); RDW Coefficient Variation 18.6 % (11.7-14.2); RDW Standard Deviation 53.8 fL (35.1-46.3); Red Blood Cell Count 5.09 M/mm3 (4.30-5.90); White Blood Cell Count 8.34 K/mm3 (4.00-11.30)
[2023-07-22 19:21] LABS: Albumin, Blood 3.5 g/dL (3.4-5.0); Albumin/Globulin Ratio 0.9 (0.8-1.8); Bun/Creatinine Ratio 22.4 (12.0-20.0); Calcium, Blood 9.4 mg/dL (8.5-10.1); Creatinine, Blood 1.74 mg/dL (0.60-1.20); Globulin, Blood 3.8 g/dL (2.2-4.0); Total Protein, Blood 7.3 g/dL (6.4-8.2)
[2023-07-22 19:37] LABS: Source, Urine Clean Catch
[2023-07-22 19:45] LABS: Appearance, Urine Hazy (Clear); Bilirubin, Urine Neg (Neg); Blood, Urine Neg (Neg); Color, Urine Yellow (P-Yellow); Glucose Qualitative, Urine Neg (Neg); Ketones, Urine Neg (Neg); Leukocyte Esterase, Urine Neg (Neg); Nitrite, Urine Neg (Neg); Protein, Urine 2+ (Neg); Urobilinogen, Urine 1+ (Normal)
[2023-07-22 20:00] VITALS: BP 106/70
[2023-07-22 20:02] LABS: Amorphous Light (0-Heavy); Bacteria Many /hpf; Mucus Light (0-Heavy); Red Blood Cells, Urine 0-2 /hpf (0-2); Squamous Epithelial Cells Rare /hpf (Few); White Blood Cells, Urine 0-2 /hpf (0-5)
[2023-07-22 20:03] LABS: Granular Casts 0-2 /lpf (0); Hyaline Casts 25-50 /lpf (0-2); Transitional Epithelial Cells Rare /hpf (0-Rare)
== END 2023-07-22 21:09 | disposition home or self-care (01) ==
LOC: ER 15:46
PROVIDERS: Student in an Organized Health Care Education/Training Program
DX: G20 Parkinson's disease (principal); R29.6 Repeated falls; Z79.01 Long term (current) use of anticoagulants; Z79.51 Long term (current) use of inhaled steroids; Z95.2 Presence of prosthetic heart valve; Z79.82 Long term (current) use of aspirin; Z79.899 Other long term (current) drug therapy
CPT/HCPCS: 51701; 70450; 72125; 80053; 81001; 85025; 93005; 93010; 99284-25

== ENCOUNTER 2023-08-09 16:26 | Emergency (ER) | payer OTHER ==
[~2023-08-09] VITALS: Ht 180.3 cm; Wt 88.0 kg
[~2023-08-09 16:26] MED LIST changes: +ALLO100 PO; +ALLO300 PO; +BUMETANIDE2 M6 PO; +CARBIDOPA-LEVO1 EA15 PO; +DIGOX125 MC1 PO; +ELIQUIS5 M3 PO; +FLUDROCORTISON0.1 M2 PO; +METO50ER PO; +MIDO5 PO; +POTA10T PO; +Ventolin/Prove6.7 GM INH
[2023-08-09 17:19] VITALS: BP 117/99
[2023-08-09] MEDS ORDERED: TRAM50 PO (21:04)
[2023-08-09] MEDS ORDERED: TIZA4 PO (21:05)
== END 2023-08-09 21:44 | disposition home or self-care (01) ==
LOC: ER 16:26
DX: S32.018A Other fracture of first lumbar vertebra, initial encounter for closed fracture (principal); R29.6 Repeated falls; M25.551 Pain in right hip; G20.A1 Parkinson's disease without dyskinesia, without mention of fluctuations; I10 Essential (primary) hypertension; I42.9 Cardiomyopathy, unspecified; Z95.810 Presence of automatic (implantable) cardiac defibrillator; Z79.01 Long term (current) use of anticoagulants; Z91.048 Other nonmedicinal substance allergy status; Z79.52 Long term (current) use of systemic steroids; Z79.899 Other long term (current) drug therapy; Z79.51 Long term (current) use of inhaled steroids; W18.30XA Fall on same level, unspecified, initial encounter
CPT/HCPCS: 70450; 72125; 72131; 72170; 99284-25; A9270

== ENCOUNTER 2023-08-21 10:46 | Inpatient (IN) | payer OTHER ==
[~2023-08-21] VITALS: Ht 182.9 cm; Wt 75.2 kg
[~2023-08-21 10:46] MED LIST changes: +TIZA4 PO; +TRAM50 PO
[2023-08-21 11:37] LABS: BASOPHILS ABSOLUTE AUTO 0.01 K/mm3 (0.00-0.23); BASOPHILS PERCENT AUTO 0 % (0-2); EOSINOPHILS PERCENT AUTO 0 % (0-6); Hemoglobin 14.4 g/dL (13.5-17.5); IMMATURE GRAN ABSOLUTE AUTO 0.05 K/mm3 (0.00-0.10); IMMATURE GRAN PERCENT AUTO 1 % (0-1); LYMPHOCYTES ABSOLUTE AUTO 1.53 K/mm3 (0.84-5.20); LYMPHOCYTES PERCENT AUTO 16 % (21-46); MONOCYTES ABSOLUTE AUTO 0.82 K/mm3 (0.16-1.47); MONOCYTES PERCENT AUTO 8 % (4-13); Mean Corpuscular HGB 25.4 pg (26.0-34.0); Mean Corpuscular HGB Conc 30.6 g/dL (31.5-36.5); Mean Corpuscular Volume 83 fL (80-100); Mean Platelet Volume 12.3 fL (9.1-12.4); NEUTROPHILS ABSOLUTE AUTO 7.41 K/mm3 (1.96-9.15); NEUTROPHILS PERCENT AUTO 75 % (41-73); NRBC ABSOLUTE 0.12 K/mm3 (0.00-0.02); NRBC Auto 1.2 /100 WBC (0.0-0.2); Platelet Count 317 K/mm3 (150-400); RDW Coefficient Variation 21.9 % (11.7-14.2); RDW Standard Deviation 60.2 fL (35.1-46.3); Red Blood Cell Count 5.68 M/mm3 (4.30-5.90); White Blood Cell Count 9.82 K/mm3 (4.00-11.30)
[2023-08-21 11:50] LABS: Albumin, Blood 3.7 g/dL (3.4-5.0); Bilirubin, Total 4.1 mg/dL (0.1-1.0); Bun/Creatinine Ratio 42.8 (12.0-20.0); Calcium, Blood 9.8 mg/dL (8.5-10.1); Creatinine, Blood 1.87 mg/dL (0.60-1.20); Globulin, Blood 3.8 g/dL (2.2-4.0); Magnesium, Blood 2.7 mg/dL (1.6-2.4); Thyroid Stimulating Hormone 4.53 uIU/mL (0.360-4.800); Total Protein, Blood 7.5 g/dL (6.4-8.2)
[2023-08-21 11:59] LABS: International Normalized Ratio 2.41; Prothrombin Time Results 24.1 Sec (9.7-11.5)
[2023-08-21 12:34] LABS: Digoxin (Lanoxin) 1.56 ug/mL (0.80-2.00)
[2023-08-21 13:12] LABS: Source, Urine Clean Catch
[2023-08-21 13:25] LABS: Appearance, Urine Hazy (Clear); Bilirubin, Urine Neg (Neg); Blood, Urine Neg (Neg); Color, Urine Yellow (P-Yellow); Glucose Qualitative, Urine Neg (Neg); Ketones, Urine Neg (Neg); Leukocyte Esterase, Urine Neg (Neg); Nitrite, Urine Neg (Neg); Protein, Urine 2+ (Neg); Urobilinogen, Urine 1+ (Normal)
[2023-08-21 14:10] LABS: Mucus Light (0-Heavy)
[2023-08-21 14:11] LABS: Amorphous Light (0-Heavy); Bacteria Mod /hpf; Calcium Oxalate Crystals Rare /hpf; Red Blood Cells, Urine 0-2 /hpf (0-2); Squamous Epithelial Cells Rare /hpf (Few); White Blood Cells, Urine 0-2 /hpf (0-5)
[2023-08-21 14:27] LABS: U Amphetamine Screen Not Detected; U Barbituate Screen Not Detected; U Benzodiazapine Screen Not Detected; U Buprenorphine Screen Not Detected; U Cannabinoids Screen Not Detected; U Cocaine Screen Not Detected; U Methadone Screen Not Detected; U Methamphetamine Screen Not Detected; U Opiates Screen Not Detected; U Oxycodone Screen Not Detected; U Phencyclidine Screen Not Detected; U Propoxyphene Screen Not Detected
[2023-08-21 18:33] LABS: Base Excess Venous -2.4 mmol/L; Bicarbonate Venous 21.9 mmol/L (24.0-30.0); PCO2 Venous 40.4 mmHg (38-42); pH Blood Venous 7.36 (7.34-7.37)
[2023-08-22 03:56] VITALS: BP 118/74
[2023-08-22 04:13] LABS: Hemoglobin 13.4 g/dL (13.5-17.5); Mean Corpuscular HGB 25.3 pg (26.0-34.0); Mean Corpuscular HGB Conc 31.2 g/dL (31.5-36.5); Mean Corpuscular Volume 81 fL (80-100); NRBC ABSOLUTE 0.08 K/mm3 (0.00-0.02); NRBC Auto 0.9 /100 WBC (0.0-0.2); Platelet Count 252 K/mm3 (150-400); RDW Coefficient Variation 21.4 % (11.7-14.2); RDW Standard Deviation 58.1 fL (35.1-46.3); Red Blood Cell Count 5.29 M/mm3 (4.30-5.90); White Blood Cell Count 8.54 K/mm3 (4.00-11.30)
[2023-08-22 04:21] LABS: Mean Platelet Volume 12.5 fL (9.1-12.4)
[2023-08-22 04:39] LABS: Albumin, Blood 3.3 g/dL (3.4-5.0); Bilirubin, Total 3.6 mg/dL (0.1-1.0); Bun/Creatinine Ratio 47.8 (12.0-20.0); Calcium, Blood 9.3 mg/dL (8.5-10.1); Creatinine, Blood 1.59 mg/dL (0.60-1.20); Globulin, Blood 3.3 g/dL (2.2-4.0); Potassium, Blood 4.3 mmol/L (3.5-5.5); Total Protein, Blood 6.6 g/dL (6.4-8.2)
[2023-08-22 05:18] LABS: International Normalized Ratio 2.13; Prothrombin Time Results 21.4 Sec (9.7-11.5)
[2023-08-22 08:10] VITALS: BP 120/74
--- NOTE | 2023-08-22 12:24 | NUR ---
Palliative Care Consult for AD/POLST and Advanced Care Planning. 78 year old male admitted to the hospital for Toxic Metabolic Encephalopathy. Pt's medical history and comorbidities include: Parkinson's Disease, Dementia, CKD, Chronic Hypotension, CHF, CAD, Aflutter, Hyperlipidemia, and Gout Arthritis. Spoke with Primary RN Lorena and discussed case. Spouse has brought in Pt's AD. Pt mostly non verbal. Pt resting in bed with his eyes closed. Pt briefly opens his eyes and states "hi" then drifts back to sleep. Pt's spouse Justine (Perfers to be addressed as Ladarius) at bedside. Offered therapeutic listening as Ladarius reports at baseline, Pt requires assistance with transfers, ambulation (standbye assist with walker), bathing, and dressing. She reports over the last couple of weeks, Pt has been having more falls, and appetitie is poor. She reports Pt will only take in liquids due to Pt complaining about difficulty swallowing. She reports Pt has been losing more motivation and interst in doing things. Ladarius reports she and Pt have 3 daughters all of whom live out of state. Ladarius expresses concerns regarding Pt's care needs and has spoken with some one from [facility] for 6 hours a week caregiver assistance. Pt starting to struggle with toileting now as well. Engaged in therapeutic discussion regarding advanced care planning. Educated on disease process including trajectory. Discussed the importance of planning for the future including the potential need for hospice at some point. Offered therapeutic listening and answered questions. Ladarius provides copy of Pt's advanced directive. Discussed Pt's code status wishes. Educated on life sustaining treatments including risk factors and implications to CPR/Intubation. Ladarius reports Pt's wishes are DNR. Continued therapeutic visit. Delivered copy of AD to medical records via hospital tube system. Called and spoke to Dr Seth. Placed DNR order in [employer] per V/O from Dr Seth. PPS 40% ADLs 5/6 Pt high risk for readmission Palliative Care will remain available.
[2023-08-22 12:32] VITALS: BP 110/63
--- NOTE | 2023-08-22 13:18 | NUR ---
EDUCATED FAMILY ON NEED TO MAINTAIN MOBILITY. PT ABLE TO STAND AND TRANSFER AT BASELINE. SPOUSE USES A LIFT ASSIST DEVISE AT HOME TO HELP PT UP FROM BED. PT RESTING NOW COMFORTABLY, RESPIRATIONS EVEN AND UNLABORED ON 2L NC. CALL LIGHT IN REACH AND BED IN LOWEST POSITION.
[2023-08-22 16:25] VITALS: BP 119/77
--- NOTE | 2023-08-22 17:50 | NUR ---
PT LETHARGIC AND HAS DIFFICULTY SPEAKING. AT BEDSIDE TO UPDATE PT HX. PT UP TO CHAIR WITH ASSIST FROM TWO STAFF MEMBERS. PT HAS ISAAC MORAN BREATHING AND DESATS TO THE 60S. NC O2 INCREASED TO 4L TO MAINTAIN SATS >90%. PT ON TELE AND HAS PACER. CC IN PLACE AND DRAINING TO GRAVITY. REDNESS ON COCCYX BLANCHABLE WITH A MEPILEX IN PLACE TO PREVENT FURTHER BREAKDOWN. HEEL PROTECTORS IN PLACE TO PREVENT HEEL BREAKDOWN. BRUISING FROM FALLS AT HOME, PICTURES IN CHART. PALLIATIVE CARE CONSULT TODAY AND CODE STATUS UPDATED. PT STATES PT WOULD WANT TO GO HOME AND BE COMFORTABLE. MD NOTIFIED OF PT DESIRES.
[2023-08-22 20:33] VITALS: BP 117/83
[2023-08-22 23:37] VITALS: BP 101/81
[2023-08-23] VITALS (7 sets, daily range): BP systolic 97–127; BP diastolic 60–81
[2023-08-23 03:49] LABS: BASOPHILS ABSOLUTE AUTO 0.01 K/mm3 (0.00-0.23); BASOPHILS PERCENT AUTO 0 % (0-2); EOSINOPHILS ABSOLUTE AUTO 0.13 K/mm3 (0.00-0.68); EOSINOPHILS PERCENT AUTO 1 % (0-6); Hematocrit 43.9 % (37.0-53.0); Hemoglobin 13.9 g/dL (13.5-17.5); IMMATURE GRAN ABSOLUTE AUTO 0.05 K/mm3 (0.00-0.10); IMMATURE GRAN PERCENT AUTO 1 % (0-1); LYMPHOCYTES ABSOLUTE AUTO 1.29 K/mm3 (0.84-5.20); LYMPHOCYTES PERCENT AUTO 13 % (21-46); MONOCYTES ABSOLUTE AUTO 0.81 K/mm3 (0.16-1.47); MONOCYTES PERCENT AUTO 8 % (4-13); Mean Corpuscular HGB 25.4 pg (26.0-34.0); Mean Corpuscular HGB Conc 31.7 g/dL (31.5-36.5); Mean Corpuscular Volume 80 fL (80-100); Mean Platelet Volume 12.2 fL (9.1-12.4); NEUTROPHILS ABSOLUTE AUTO 7.96 K/mm3 (1.96-9.15); NEUTROPHILS PERCENT AUTO 78 % (41-73); NRBC ABSOLUTE 0.05 K/mm3 (0.00-0.02); NRBC Auto 0.5 /100 WBC (0.0-0.2); Platelet Count 266 K/mm3 (150-400); RDW Coefficient Variation 21.2 % (11.7-14.2); RDW Standard Deviation 57.1 fL (35.1-46.3); Red Blood Cell Count 5.47 M/mm3 (4.30-5.90); White Blood Cell Count 10.25 K/mm3 (4.00-11.30)
[2023-08-23 04:19] LABS: Albumin, Blood 3.2 g/dL (3.4-5.0); Anion Gap 5 mmol/L (6-16); Blood Urea Nitrogen 70 mg/dL (8-24); CO2, Blood 33 mmol/L (21-32); Calcium, Blood 9.1 mg/dL (8.5-10.1); Chloride, Blood 105 mmol/L (98-108); Glomerular Filtration Rate 51 (60-); Glucose, Blood 129 mg/dL (70-99); Magnesium, Blood 2.2 mg/dL (1.6-2.4); Potassium, Blood 3.3 mmol/L (3.5-5.5); Sodium, Blood 143 mmol/L (136-145)
--- NOTE | 2023-08-23 06:27 | NUR ---
PATIENT ORIENTED X2. V-PACED WITH STABLE BLOOD PRESSURE. 4L NC. CONDOM CATHETER IN PLACE.
--- NOTE | 2023-08-23 09:35 | NUR ---
ASSUMPTION OF CARE ASSUMED CARE AT APPROX 0700. PT AOX2. ABLE TO REPORT THAT HIS NAME AND DATE OF AND THAT HE IS CURRENTLY IN THE HOSPITAL. UNABLE TO RECALL DIAGNOSIS OR REASON FOR ADMITTANCE. REPORTED THAT HE WAS "IN MYRTLE [place]IM [place]." GARBLED SPEECH, SLOW W/ RESPONDING TO CONVERSATION AND W/ FOLLOWING DIRECTIONS. COOPERATIVE W/ CARE. VSS. TELEMETRY CURRENTLY SHOWING V PACED 60'S. BP STABLE. CURRENTLY ON 2L VIA NC, SATS >90%. USES 4L WHILE SLEEPING. TACHYPNEA, SHALLOW RESPIRATIONS NOTED. CONDOM CATH IN PLACE DRAINING YELLOW URINE. DECREASED APPETITE NOTED. IS A 2P ASSIST OUT OF BED, DECLINED AMBULATING TO CHAIR TO EAT BREAKFAST. PALLATIVE CARE RN TO BEDSIDE TO DISCUSS COMFORT MEASURES W/ PT AND FAMILY, THIS RN TO NOTIFY ONCE ARRIVES AT BEDSIDE. CALL LIGHT IN REACH.
--- NOTE | 2023-08-23 10:57 | NUR ---
Brief supportive visit. Pt working with therapy upon arrival and is currently in chair. Pt more engaged today and appears in good spirits. Spouse and family friend at bedside. Spouse reports no concerns at this time. Spouse reports hope is for Pt to return home soon. Spoke with Primary RN Dina and discussed case. Palliative Care will remain available
--- NOTE | 2023-08-23 15:40 | NUR ---
PT BEGINNING TO EXPRESS INCREASED ANXIETY. STATING THAT HE "WANTS TO GET OUT OF HERE." THIS RN CONTACTED MD VLADIMIR TO PUT IN ORDERS.
--- NOTE | 2023-08-23 17:47 | NUR ---
SHIFT SUMMARY NO ACUTE CHANGES SINCE ASSUMPTION OF CARE NOTE. STATUS CHANGE TO MEDICAL WITH TELEMETRY. PT REMAINS AOX2. DEMONSTRATED INCREASED ANXIETY THIS AFTERNOON, SEE PREVIOUS NOTE. MEDICATED PER EMAR WITH PO XANAX. ANXIETY MANAGED AT THIS TIME. COOPERATIVE WITH CARE. PLAN FOR HOME WITH HOSPICE INITIATED TODAY. VS REMAIN STABLE. BP STABLE. DENIES CHEST PAIN OR PRESSURE. REMAINS ON 2L VIA NC, SATS >90%. CONDOM CATH AND ATTENDS IN PLACE, CHANGED PRN TO KEEP C/D/I. VOIDING. NO BM THIS SHIFT. WORKED WITH OCCUPATIONAL THERAPY THIS AFTERNOON. UP WITH 2P ASSIST WITH FWW AND GB. IS CURRENTLY SITTING IN CHAIR EATING DINNER. AT BEDSIDE THROUGHOUT SHIFT. IS RECEPTIVE TO CARE AND EDUCATION. CALL LIGHT IN REACH AND TAB ALARM IN PLACE. WILL REPORT TO ONCOMING RN.
[2023-08-24] VITALS (10 sets, daily range): BP systolic 89–118; BP diastolic 58–98
--- NOTE | 2023-08-24 04:32 | NUR ---
SHIFT SUMMARY PT REMAINS ALERT AND ORIENTED TO SELF. PT HAS SLEPT THROUGHOUT THIS SHIFT. NO ACUTE EVENTS THIS SHIFT. PT ON 2 L N/C, O2 SATS >95%. CARDIAC MONITORING HAS REFLECTED VENTRICULAR PACED RHYTHM, HR 60s. SBP 90s-100s. CONDOM CATH IN PLACE, PATENT AND DRAINING TO GRAVITY. PIV IN L AC SL. WILL CONTINUE TO MONITOR UNTIL CARE IS TRANSITIONED TO DAY SHIFT.
[2023-08-24 04:46] LABS: Albumin, Blood 3.1 g/dL (3.4-5.0); Anion Gap 6 mmol/L (6-16); Blood Urea Nitrogen 50 mg/dL (8-24); Bun/Creatinine Ratio 43.1 (12.0-20.0); CO2, Blood 39 mmol/L (21-32); Chloride, Blood 97 mmol/L (98-108); Creatinine, Blood 1.16 mg/dL (0.60-1.20); Glomerular Filtration Rate 64 (60-); Glucose, Blood 101 mg/dL (70-99); Potassium, Blood 2.7 mmol/L (3.5-5.5); Sodium, Blood 142 mmol/L (136-145)
--- NOTE | 2023-08-24 09:47 | NUR ---
ASSUMPTION OF CARE THIS RN ASSUMED CARE AT APPROX 0700. PT AOX1-2. IS ABLE TO REPORT HIS NAME, BIRTHDAY, AND THAT HE IS IN THE HOSPITAL. PRIOR DIAGNOSIS OF PARKINSONS AND DEMENTIA, FORGETFUL. BED ALARM AND CHAIR ALARM IN PLACE FOR SAFETY, FALL PREVENTION. FIDGETS WITH CORDS AND DEVICES INTERMITTENTLY. VSS. BLOOD PRESSURE SOFT THIS MORNING, SBP 80'S-90'S. PO MIDODRINE ADMINISTERED PER EMAR WITH SOME IMPROVEMENT. CURRENT SBP 90'S. PO METOPROLOL AND IV BUMEX HELD. PT ON 2L VIA NC, SATS >90%. CONDOM CATHETER IN PLACE, PATENT DRAINING YELLOW URINE TO GRAVITY. ATTENDS IS C/D/I. PT AMBULATED WITH 2P ASSIST FWW AND GB. IS CURRENTLY SITTING IN CHAIR. INCREASED APPETITE NOTED, IS TOLERATING BREAKFAST. IV POTASSIUM CHLORIDE INFUSING PER EMAR. CALL LIGHT IN REACH.
[2023-08-24 10:11] LABS: HBSAG SCREEN Negative (Negative); HCV AB Non Reactive (Non Reactive); HEP A AB, IGM Negative (Negative); HEP B CORE AB, IGM Negative (Negative)
--- NOTE | 2023-08-24 13:09 | NUR ---
Supportive visit this afternoon. Pt sitting in chair upon arrival. Pt's spouse, daughter, and family friend at bedside. Discussed plan for D/C Monday with hospice. Offered therapeutic listening and answered questions. Spoke with RN Printing Supplies Sales Representative Bridget and discussed case. Palliative Care will remain available
--- NOTE | 2023-08-24 16:33 | NUR ---
SHIFT SUMMARY NO ACUTE CHANGES SINCE ASSUMPTION OF CARE NOTE. PT REMAINS AOX2. EPISODE OF INCREASED ANXIETY, EXPRESSING INCREASED DESIRE TO GO HOME. PT BEGAN FIDGTING WITH LINES AND DEVICES. MEDICATED PER EMAR, DECREASED ANXIETY REPORTED. PT IS CURRENTLY SLEEPING, EASILY AROUSABLE TO VERBAL STIMULI. COOPERATIVE WITH CARE. AND MULTIPLE VISITORS AT BEDSIDE THROUGHOUT SHIFT. VS REMAIN STABLE. BP SOFT THROUGHOUT SHIFT, SBP 90'S-110'S. TELEMETRY SHOWING V PACED 60'S. CONDOM CATH IN PLACE, DRAINING YELLOW URINE TO GRAVITY. NO BM THIS SHIFT. PLAN IS TO DISCHARGE HOME WITH HOSPICE TOMORROW, 08/24/23. CALL LIGHT IN REACH. WILL REPORT TO ONCOMING RN.
--- NOTE | 2023-08-25 04:45 | NUR ---
SHIFT SUMMARY NO ACUTE CHANGES THIS SHIFT. VSS. MENTATION UNCHANGED. FOLLOWS DIRECTIONS BUT SLOW WITH RESPONSES. FORGETFUL, BED ALARM ON. ON L WHILE RESTING. REMAINS PACED. CONDOM CATH REMOVED THIS SHIFT DUE TO TROUBLES WITH LEAKING. EXTERNAL WICKING PAD APPLIED. PT BEING TURNED BY STAFF. OTHERWISE, RESTING THIS SHIFT.
[2023-08-25 07:37] VITALS: BP 109/69
[2023-08-25] MEDS ORDERED: ALPR.25 PO (09:55)
[2023-08-25 10:38] VITALS: BP 91/60
--- NOTE | 2023-08-25 11:06 | NUR ---
D/C SUMMARY PT IS BEING D/C'D ON HOSPICE. HOME MEDICATIONS FAXED TO [facility] PER PT/FAMILY REQUEST. HIS JANETT SHOWED UP RIGHT BEFORE TH EPT LEFT AND I WAS ABLE TO GO OVER DISCHARGE DIRECTIONS WITH BOTH THE PT AND SPOUSE. NO COMPLAINTS AND ALL QUESTIONS HAVE BEEN ANSWERED. V/S STABLE, NO PT COMPLAINTS, D/C TIME AT 1100. IV D/C'D BY MAGUE MAYEN.
== END 2023-08-25 11:00 | disposition home health service (06) | DRG 441 ==
LOC: ER 10:46 → PCU 19:25
PROVIDERS: Internal Medicine; Nurse Practitioner Acute Care; Student in an Organized Health Care Education/Training Program; ADMIT Internal Medicine
DX: K72.00 Acute and subacute hepatic failure without coma (principal); G92.8 Other toxic encephalopathy; I50.23 Acute on chronic systolic (congestive) heart failure; I24.89 Other forms of acute ischemic heart disease; N17.9 Acute kidney failure, unspecified; I48.92 Unspecified atrial flutter; E87.20 Acidosis, unspecified; I13.0 Hypertensive heart and chronic kidney disease with heart failure and stage 1 through stage 4 chronic kidney disease, or unspecified chronic kidney disease; I42.9 Cardiomyopathy, unspecified; R18.8 Other ascites; I47.20 Ventricular tachycardia, unspecified; Z66 Do not resuscitate; F03.90 Unspecified dementia, unspecified severity, without behavioral disturbance, psychotic disturbance, mood disturbance, and anxiety; G20.A1 Parkinson's disease without dyskinesia, without mention of fluctuations; I95.89 Other hypotension; R23.3 Spontaneous ecchymoses; R74.8 Abnormal levels of other serum enzymes; E80.6 Other disorders of bilirubin metabolism; I49.9 Cardiac arrhythmia, unspecified; N18.30 Chronic kidney disease, stage 3 unspecified; K21.9 Gastro-esophageal reflux disease without esophagitis; I25.10 Atherosclerotic heart disease of native coronary artery without angina pectoris; E78.5 Hyperlipidemia, unspecified; M10.9 Gout, unspecified; M54.9 Dorsalgia, unspecified; R74.01 Elevation of levels of liver transaminase levels; E87.6 Hypokalemia; W19.XXXA Unspecified fall, initial encounter; Z79.899 Other long term (current) drug therapy; Z79.51 Long term (current) use of inhaled steroids; Z91.048 Other nonmedicinal substance allergy status; Z79.01 Long term (current) use of anticoagulants; Z79.891 Long term (current) use of opiate analgesic; Z87.442 Personal history of urinary calculi; Z95.2 Presence of prosthetic heart valve; Z98.890 Other specified postprocedural states; Z95.810 Presence of automatic (implantable) cardiac defibrillator
CPT/HCPCS: 36415; 51701; 51798; 70450; 71045; 74177; 76705; 80053; 80069; 80074; 80162; 81001; 82140; 82550; 82803; 83605; 83735; 83880; 84443; 84484; 85025; 85027; 85610; 85730; 87086; 93005; 93010; 94760; 94762; 96361-59; 96365-59; 96375-59; 97166; 97530; 99285-25; A9270; C8929; J0696; J1940; J3480; J7030; J7050; Q9957; Q9967